=== PATIENT | female | born 1990 | race Asian ===

== ENCOUNTER 2020-09-18 22:20 | Emergency (ER) | payer OTHER ==
[~2020-09-18 22:20] MED LIST: BENTYL10 MG PO; COLACE100 MG PO; LODINE400 MG PO; MEDROL 4MG DOSEP4 MG PO; TESSALON PERLE100 MG PO; ZPAK PO
[2020-09-18 22:57] LABS: BASOPHIL 0.3 % (0-2); EOSINOPHIL 1.2 % (0-5); HCT 22.8 % (37.0-47.0); LYMPHOCYTE 33.8 % (15-48); MCH 17.6 pg (25.0-31.0); MCHC 27.6 g/dL (32.0-36.0); MCV 63.9 fL (78.0-100.0); MONOCYTE 7.4 % (0-12); NEUTROPHIL 57.1 % (41-80); NRBC 0; PLT 343 K/uL (150-400); RBC 3.57 M/uL (4.20-5.40); RDW 17.5 % (11.5-14.0); WBC 5.8 K/uL (4.0-10.5)
[2020-09-18 23:11] LABS: BILIRUBIN NEGATIVE (NEGATIVE); BLOOD NEGATIVE Ery/uL (NEGATIVE); CLARITY CLEAR (CLEAR); COLOR YELLOW (YELLOW); GLUCOSE (U) NORMAL (NORMAL); LEUKOCYTES NEGATIVE Leu/uL (NEGATIVE); NITRITE NEGATIVE (NEGATIVE); PROTEIN NEGATIVE (NEGATIVE); SPECIFIC GRAVITY 1.015 (1.001-1.030); UROBILINOGEN 0.2 mg/dL (0.2-1.0); pH 7.5 (5.0-9.0)
[2020-09-18 23:14] LABS: HGB 6.3 g/dl (12.5-16.0)
[2020-09-18 23:16] LABS: BACTERIA TRACE; SQUAMOUS EPITHELIAL CELLS RARE
[2020-09-18 23:19] LABS: ALBUMIN 3.1 g/dL (3.4-5.0); BILIRUBIN - TOTAL 0.2 mg/dL (0.2-1.0); BUN/CREAT RATIO (CALC) 19.4 RATIO; CREATININE 0.72 mg/dL (0.51-0.95); GLOBULIN (CALCULATION) 3.6 g/dL; POTASSIUM 3.8 mmol/L (3.5-5.1); TOTAL PROTEIN 6.7 g/dL (6.4-8.2)
[2020-09-18 23:32] LABS: RETICULOCYTE COUNT 1.6 % (1.0-2.0)
[2020-09-18 23:36] LABS: INR 1.05 (0.9-1.2); PTT 37.8 SECONDS (22.2-34.7)
[2020-09-18 23:45] LABS: IRON % SATURATION 2.8 %SAT (20-50)
[2020-09-19] MEDS ORDERED: FEOSOL325 MG PO (04:11)
[2020-09-19 04:21] LABS: HCT 29.4 % (37.0-47.0)
[2020-09-19 04:24] LABS: HGB 8.7 g/dL (12.5-16.0)
== END 2020-09-19 04:41 | disposition home or self-care (01) ==
LOC: FER 22:20
PROVIDERS: Emergency Medicine
DX: O20.0 Threatened abortion (principal); O99.011 Anemia complicating pregnancy, first trimester; D50.9 Iron deficiency anemia, unspecified; O99.331 Smoking (tobacco) complicating pregnancy, first trimester; F17.210 Nicotine dependence, cigarettes, uncomplicated; Z86.19 Personal history of other infectious and parasitic diseases; Z3A.01 Less than 8 weeks gestation of pregnancy
CPT/HCPCS: 36415; 36430; 76817; 80053; 81001; 83540; 83550; 84702; 85014; 85018; 85025; 85610; 85730; 86850; 86900; 86901; 86922; J7050; P9016

== ENCOUNTER 2020-10-08 18:27 | Emergency (ER) | payer OTHER ==
[~2020-10-08 18:27] MED LIST changes: +FEOSOL325 MG PO
== END 2020-10-08 19:55 | disposition home or self-care (01) ==
LOC: FER 18:27
DX: O9A.211 Injury, poisoning and certain other consequences of external causes complicating pregnancy, first trimester (principal); S50.01XA Contusion of right elbow, initial encounter; O99.331 Smoking (tobacco) complicating pregnancy, first trimester; F17.210 Nicotine dependence, cigarettes, uncomplicated; Z88.5 Allergy status to narcotic agent; Z3A.01 Less than 8 weeks gestation of pregnancy; W31.9XXA Contact with unspecified machinery, initial encounter; Y92.89 Other specified places as the place of occurrence of the external cause; Y99.0 Civilian activity done for income or pay
CPT/HCPCS: 73070

== ENCOUNTER 2020-10-16 17:21 | Emergency (ER) | payer OTHER ==
[2020-10-16 20:35] LABS: BILIRUBIN NEGATIVE (NEGATIVE); BLOOD NEGATIVE Ery/uL (NEGATIVE); CLARITY CLEAR (CLEAR); COLOR YELLOW (YELLOW); GLUCOSE (U) NORMAL (NORMAL); LEUKOCYTES NEGATIVE Leu/uL (NEGATIVE); NITRITE NEGATIVE (NEGATIVE); PROTEIN NEGATIVE (NEGATIVE); SPECIFIC GRAVITY 1.025 (1.001-1.030); UROBILINOGEN 0.2 mg/dL (0.2-1.0); pH 6.5 (5.0-9.0)
[2020-10-16 20:41] LABS: BASOPHIL 0.3 % (0-2); EOSINOPHIL 1.4 % (0-5); LYMPHOCYTE 26.3 % (15-48); MCH 23.7 pg (25.0-31.0); MCHC 30.6 g/dL (32.0-36.0); MCV 77.6 fL (78.0-100.0); MONOCYTE 6.4 % (0-12); MPV 9.5 fL (6.0-9.5); NEUTROPHIL 65.3 % (41-80); NRBC 0; PLT 247 K/uL (150-400); WBC 5.8 K/uL (4.0-10.5)
[2020-10-16 20:43] LABS: RBC 4.64 M/uL (4.20-5.40)
[2020-10-16 20:50] LABS: ALBUMIN 3.3 g/dL (3.4-5.0); BILIRUBIN - TOTAL 0.3 mg/dL (0.2-1.0); BUN/CREAT RATIO (CALC) 27.5 RATIO; CREATININE 0.51 mg/dL (0.51-0.95); GLOBULIN (CALCULATION) 3.6 g/dL; POTASSIUM 3.7 mmol/L (3.5-5.1); TOTAL PROTEIN 6.9 g/dL (6.4-8.2)
== END 2020-10-16 21:43 | disposition home or self-care (01) ==
LOC: FER 17:21
PROVIDERS: Nurse Practitioner Family
DX: O20.0 Threatened abortion (principal); O99.331 Smoking (tobacco) complicating pregnancy, first trimester; F17.210 Nicotine dependence, cigarettes, uncomplicated; Z3A.10 10 weeks gestation of pregnancy
CPT/HCPCS: 36415; 80053; 81003; 84702; 85025; 99284

== ENCOUNTER 2021-10-26 12:54 | Emergency (ER) | payer OTHER ==
[~2021-10-26] VITALS: Ht 157.5 cm; Wt 76.7 kg
[2021-10-26 13:48] LABS: BASOPHIL 0.5 % (0-2); EOSINOPHIL 2.5 % (0-5); HCT 39.8 % (37.0-47.0); HGB 12.9 g/dl (12.5-16.0); LYMPHOCYTE 30.2 % (15-48); MCHC 32.4 g/dL (32.0-36.0); MCV 80.2 fL (78.0-100.0); NEUTROPHIL 58.5 % (41-80); NRBC 0; PLT 239 K/uL (150-400); RBC 4.96 M/uL (4.20-5.40); RDW 14.1 % (11.5-14.0); WBC 6.5 K/uL (4.0-10.5)
[2021-10-26 13:49] LABS: BILIRUBIN NEGATIVE (NEGATIVE); BLOOD NEGATIVE Ery/uL (NEGATIVE); CLARITY CLEAR (CLEAR); COLOR YELLOW (YELLOW); GLUCOSE (U) NORMAL (NORMAL); LEUKOCYTES NEGATIVE Leu/uL (NEGATIVE); NITRITE NEGATIVE (NEGATIVE); PROTEIN NEGATIVE (NEGATIVE); SPECIFIC GRAVITY >=1.030 (1.001-1.030)
[2021-10-26 14:00] LABS: BUN/CREAT RATIO (CALC) 18.2 RATIO; CREATININE 0.66 mg/dL (0.51-0.95); POTASSIUM 3.7 mmol/L (3.5-5.1)
[2021-10-26 14:22] LABS: CORONAVIRUS 2019 SARS-COV-2 NEGATIVE (NEGATIVE); INFLUENZA A NAA NEGATIVE (NEGATIVE)
== END 2021-10-26 16:13 | disposition home or self-care (01) ==
LOC: FER 12:54
PROVIDERS: Nurse Practitioner Family
DX: R51.9 Headache, unspecified (principal); R52 Pain, unspecified; R53.83 Other fatigue; Z88.0 Allergy status to penicillin; F17.290 Nicotine dependence, other tobacco product, uncomplicated; Z20.822 Contact with and (suspected) exposure to COVID-19
CPT/HCPCS: 36415; 80048; 81003; 85025; J1100; J1200; J1885; J2405; J7030; U0002

== ENCOUNTER 2022-03-02 23:36 | Emergency (ER) | payer OTHER ==
[2022-03-03 00:28] LABS: ALBUMIN 3.8 g/dL (3.4-5.0); BILIRUBIN - TOTAL 0.4 mg/dL (0.2-1.0); BUN/CREAT RATIO (CALC) 12.3 RATIO; CREATININE 0.73 mg/dL (0.51-0.95); GLOBULIN (CALCULATION) 4.4 g/dL; POTASSIUM 3.9 mmol/L (3.5-5.1); TOTAL PROTEIN 8.2 g/dL (6.4-8.2)
[2022-03-03 00:48] LABS: BASOPHIL 0.3 % (0-2); EOSINOPHIL 1.3 % (0-5); HCT 39.9 % (37.0-47.0); LYMPHOCYTE 13.4 % (15-48); MCH 26.2 pg (25.0-31.0); MCHC 32.6 g/dL (32.0-36.0); MCV 80.4 fL (78.0-100.0); MONOCYTE 7.8 % (0-12); MPV 9.9 fL (6.0-9.5); NEUTROPHIL 76.7 % (41-80); NRBC 0; PLT 218 K/uL (150-400); RBC 4.96 M/uL (4.20-5.40); WBC 6.1 K/uL (4.0-10.5)
[2022-03-03] MEDS ORDERED: ONDANSETRON ODT4 MG PO (01:47)
[2022-03-03] MEDS ORDERED: PAXLOVID CO-PA1 EAC1 PO (01:48)
== END 2022-03-03 01:54 | disposition home or self-care (01) ==
LOC: FER 23:36
PROVIDERS: Emergency Medicine
DX: R07.89 Other chest pain (principal); U07.1 COVID-19
CPT/HCPCS: 36415; 71045; 80053; 84484; 84703; 85025; 85379; 93005; J1885; J2405; J7030

== ENCOUNTER 2022-05-20 10:30 | Emergency (ER) | payer OTHER ==
[~2022-05-20 10:30] MED LIST changes: +ONDANSETRON ODT4 MG PO; +PAXLOVID CO-PA1 EAC1 PO
[2022-05-20] MEDS ORDERED: MIRALAX17 GM PO (12:40)
== END 2022-05-20 17:03 | disposition home or self-care (01) ==
LOC: FER 10:30
DX: K59.00 Constipation, unspecified (principal); F17.290 Nicotine dependence, other tobacco product, uncomplicated; Z86.2 Personal history of diseases of the blood and blood-forming organs and certain disorders involving the immune mechanism
CPT/HCPCS: J1885